=== PATIENT | male | born 1970 | race Hispanic/Latino ===

== ENCOUNTER 2018-03-06 16:41 | Emergency (ER) | payer MEDICARE ==
[2018-03-06 16:58] VITALS: BP 129/76; PULSE 108; O2SAT 96
[2018-03-06 17:13] VITALS: RESP 16; TEMP 98.6
--- NOTE | 2018-03-06 17:38 | ED PDOC ---
Upper Extremity Pain/Injury Time Seen by Provider: 03/06/18 17:36 Chief Complaint (Nursing): Upper Extremity Problem/Injury Chief Complaint (Provider): bilateral upper arm numbness/pain History Per: Patient (47 y/o male with ongoing upper arm pain and numbness bilateral hands. Was [facility] and placed on gabapentin without relief of symptoms. Notes symptoms worse at night with laying flat. ) Past Medical History Reviewed: Historical Data, Nursing Documentation, Vital Signs Vital Signs: Last Vital Signs Temp 98.6 F 03/06/18 17:11 Pulse 108 H 03/06/18 17:11 Resp 16 03/06/18 17:11 BP 129/76 03/06/18 17:11 Pulse Ox 96 03/06/18 17:11 - Family History Family History: States: No Known Family Hx - Home Medications Home Medications: Ambulatory Orders Medication Instructions Recorded Meloxicam [Mobic] 7.5 mg PO BID PRN #14 tab 03/06/18 - Allergies Allergies/Adverse Reactions: Allergies Allergy/AdvReac Type Severity Reaction Status Date / Time No Known Allergies Allergy Verified 03/06/18 17:11 Review of Systems ROS Statement: Except As Marked, All Systems Reviewed And Found Negative Physical Exam - Reviewed Nursing Documentation Reviewed: Yes Vital Signs Reviewed: Yes - Physical Exam Appears: Positive for: Well, Non-toxic, No Acute Distress Head Exam: Positive for: ATRAUMATIC, NORMAL INSPECTION, NORMOCEPHALIC Skin: Positive for: Normal Color, Warm, DRY Eye Exam: Positive for: EOMI, Normal appearance, PERRL ENT: Positive for: Normal ENT Inspection Neck: Positive for: Normal, Painless ROM Cardiovascular/Chest: Positive for: Regular Rate, Rhythm Respiratory: Positive for: CNT, Normal Breath Sounds Gastrointestinal/Abdominal: Positive for: Normal Exam, Soft Back: Positive for: Normal Inspection Extremity: Positive for: Normal ROM Neurologic/Psych: Positive for: Alert, Oriented - ECG O2 Sat by Pulse Oximetry: 96 Disposition - Clinical Impression Clinical Impression: Cervical radiculopathy - Patient ED Disposition Is Patient to be Admitted: No - Disposition Referrals: [facility] [Outside] John Shields MD [Staff Provider] - Disposition: Routine/Home Disposition Time: 17:37 Condition: FAIR Prescriptions: Meloxicam [Mobic] 7.5 mg PO BID PRN #14 tab PRN Reason: Pain, Moderate (4-7) Instructions: Radiculopathy (DC)
== END 2018-03-06 18:26 | disposition home or self-care (01) ==
LOC: H.ER 16:41
DX: M54.12 Radiculopathy, cervical region (principal)